=== PATIENT | male | born 1985 | race Caucasian/White ===

== ENCOUNTER 2020-01-18 19:37 | Emergency (ER) | payer SELFPAY ==
[~2020-01-18] VITALS: Ht 180.3 cm; Wt 88.2 kg
[2020-01-18] MEDS ORDERED: LORazepam 1MG TABLET ONE (21:39)
[2020-01-18 21:47] VITALS: BP 149/92
[2020-01-18] MEDS ORDERED: LORazepam 1MG TABLET PO ONE (22:00)
== END 2020-01-18 21:53 | disposition home or self-care (01) ==
LOC: ED 21:45
DX: F15.10 Other stimulant abuse, uncomplicated (principal); F17.210 Nicotine dependence, cigarettes, uncomplicated
CPT/HCPCS: 99283; 99406